=== PATIENT | female | born 1935 | race Caucasian/White ===

== ENCOUNTER 2016-07-31 21:34 | Emergency (ER) | payer MEDICARE, OTHER ==
[~2016-07-31 21:34] MED LIST: ANTIVERT PO; ASPIRIN EC81 M1 PO; ASPIRIN PO; CELEBREX PO; CELEBREX100 MG PO; CIPRO PO; CRESTOR; DICYCLOMINE HCL20 MG PO; DIOVAN160 MG PO; FLEXERIL10 M1 PO; LIPITOR PO; LIPITOR20 MG PO; LISINOPRIL PO; LORATADINE PO; MEDROL4 MG/DOSE- PO; MOBIC PO; NEXIUM PO; PLENDIL PO; PLENDIL5 MG PO; PREMARIN PO; PREMARIN0.3 MG PO; SYNTHROID PO; VICODIN 5/1 TAB 5/50 PO; ZYRTEC PO
== END 2016-07-31 21:52 | disposition home or self-care (01) ==
LOC: SED 21:34
DX: S61.411A Laceration without foreign body of right hand, initial encounter (principal); Z23 Encounter for immunization; I10 Essential (primary) hypertension; M19.90 Unspecified osteoarthritis, unspecified site; Z88.2 Allergy status to sulfonamides; Z88.5 Allergy status to narcotic agent; Z91.041 Radiographic dye allergy status; Z79.899 Other long term (current) drug therapy; W45.8XXA Other foreign body or object entering through skin, initial encounter; Y92.410 Unspecified street and highway as the place of occurrence of the external cause
CPT/HCPCS: 90471; 90715; 99283

== ENCOUNTER 2016-08-15 08:03 | Emergency (ER) | payer MEDICARE, OTHER ==
--- NOTE | ~2016-08-15 | EKG ---
PATIENT: RUSSEL VALENTINO UNIT #: [id number] Ventricular Rate: 65 BPM Atrial Rate: 65 BPM P-R Interval: 164 ms QRS Duration: 110 ms Q-T Interval: 412 ms QTC Calculation(Bezet): 428 ms P Pickens: 30 degrees Calculated R Pickens: -55 degrees Calculated T Pickens: 51 degrees Diagnosis Line: Normal sinus rhythm with sinus arrhythmia Diagnosis Line: Incomplete right bundle branch block Diagnosis Line: Left anterior fascicular block Diagnosis Line: Poor R wave progression questionable lead position Diagnosis Line: or body habitus Diagnosis Line: Borderline ECG Diagnosis Line: When compared with ECG of 14-OCT-2012 09:48, Diagnosis Line: Left anterior fascicular block is now Present Diagnosis Line: Incomplete right bundle branch block is now Diagnosis Line: Present Diagnosis Line: Questionable change in initial forces of Diagnosis Line: Anteroseptal leads Diagnosis Line: Confirmed by KOBY MONTES MD ([id number]) on 08/16/2016 Diagnosis Line: 5:24:48 PM INTERPRETING MD: SIMON SHIPMAN
--- NOTE | ~2016-08-15 | CT71 ---
[facility] A Service of [facility] RADIOLOGY TEXT RESULTS PATIENT: RUSSEL VALENTINO LOCATION: SED : 37 UNIT #: [id number] AGE: [address]: Ray Hernandez MD SEX: F ORDER DR: [id number] [place] [id number] E MR#: [id number] Acc #: [id number] NAME: RUSSEL VALENTINO : 1935 SEX: F STUDY DATE/TIME: 08/15/2016 9:43 UNIT: SED ROOM: STUDY DESCRIPTION: CT Head Wo Contrast Attending Physician: Ray Hernandez M.D. Ordering Physician: Ray Henrandez M.D. Primary Care Physician: No Primary Care Physician MEDICAL IMAGING REPORT This report is preliminary unless electronic signature is present. EXAM Noncontrast CT head. DATE 08/15/2016 HISTORY 80-year-old female with complaints of right mid back pain, hypertension, and dizziness, shortness breath and nausea for 2 days. COMPARISON None TECHNIQUE This CT exam was performed with one or more of the following radiation dose reduction techniques: automatic exposure control, adjustment of mA and/or kV according to patient size, and iterative reconstruction. FINDINGS No acute intracranial hemorrhage, mass lesion, mass effect or midline shift is seen. Rodney matter-white matter junction distinction appears preserved without CT evidence of acute or evolving infarct. There is mild generalized parenchymal atrophy, with slightly more conspicuous cerebellar atrophy. No mass lesion, mass effect, or midline shift or intracranial hemorrhage is seen. Ventricular configuration is within normal limits. Major paranasal sinuses and mastoid air cells appear clear. Intracranial carotid artery calcifications are present. No acute calvarial abnormality is identified. IMPRESSION 1. Mild generalized atrophy, slightly more prominent cerebellar atrophy. 2. No acute intracranial findings. [facility] A Service [facility] RADIOLOGY TEXT RESULTS PATIENT: RUSSEL VALENTINO LOCATION: SED : 37 UNIT #: [id number] AGE: [address]: Ray Hernandez MD SEX: F ORDER DR: Dictated by... Heather Bangura M.D. THIS IS AN ELECTRONICALLY VERIFIED REPORT Heather Bangura M.D. at 08/17/2016 7:13 AM CARIDAD/monica TD: 08/15/2016 10:40 JOB #: [id number] MEDICAL IMAGING REPORT Page 1 of 1
--- NOTE | ~2016-08-15 | CR72 ---
[facility] A Service of [facility] RADIOLOGY TEXT RESULTS PATIENT: RUSSEL VALENTINO LOCATION: SED : 37 UNIT #: [id number] AGE: [address]: Ray Hernandez MD SEX: F ORDER DR: [id number] [place] [id number] E MR#: [id number] Acc #: [id number] NAME: RUSSEL VALENTINO : 1935 SEX: F STUDY DATE/TIME: 08/15/2016 09:46 UNIT: SED ROOM: STUDY DESCRIPTION: CR Chest Single View Portable Attending Physician: Ray Hernandez M.D. Ordering Physician: Ray Hernandez M.D. Primary Care Physician: Primary Care Physician No MEDICAL IMAGING REPORT This report is preliminary unless electronic signature is present. EXAM Portable chest 08/15/2016 0946 hours HISTORY 80-year-old woman with shortness of air, nausea, mid back pain and dizziness for 2 days. Elevated blood pressure. COMPARISON 10/13/2012 FINDINGS Portable upright chest demonstrates normal heart size. There is a mildly tortuous atherosclerotic aorta. There are benign calcified AP window left hilar nodes with calcified granulomata in both lower lungs. There are no acute pulmonary densities. There are no effusions. IMPRESSION 1. Heart size within normal limits with minimally tortuous atherosclerotic aorta unchanged from 10/13/2012. 2. There are benign calcified lymph nodes and calcified granulomata in the lungs. There are no acute pulmonary or pleural findings. 1. Dictated by... Alana Salazar M.D. THIS IS AN ELECTRONICALLY VERIFIED REPORT Alana Salazar M.D. at 08/15/2016 2:29 PM YSABEL/gaye TD: 08/15/2016 10:27 JOB #: [id number] [facility] A Service of [facility] RADIOLOGY TEXT RESULTS PATIENT: RUSSEL VALENTINO LOCATION: SED : 37 UNIT #: [id number] AGE: [address]: Ray Hernandez MD SEX: F ORDER DR: MEDICAL IMAGING REPORT Page 1 of 1
[2016-08-15] MEDS ORDERED: MAGNESIUM250 M1 PO (08:17)
[2016-08-15] MEDS ORDERED: VITAMIN D32000 UNI1 PO (08:17)
[2016-08-15] MEDS ORDERED: FLONASE 0.05% N16 G1 (08:18)
[2016-08-15] MEDS ORDERED: VITAMIN B122500 MC1 PO (08:18)
[2016-08-15] MEDS ORDERED: MOTION RELIEF25 MG PO (08:19)
[2016-08-15 09:17] LABS: BASOPHIL# 0.1 X10e3 (0-0.3); BASOPHIL% 1.2 % (0-2.5); EOSINOPHIL# 0.1 X10e3 (0-0.7); EOSINOPHIL% 1.1 % (0.0-7.0); HEMATOCRIT 45.6 % (35.0-45.0); HEMOGLOBIN 15.4 gm/dL (12.0-16.0); LYMPHOCYTE% 20.8 % (17.0-45.0); MEAN CELL VOLUME 84.1 FL (83-96); MEAN CORPUSCULAR HEMOGLOBIN 28.4 PG (28-34); MEAN CORPUSCULAR HGB CONC 33.8 g/dL (30-36); MEAN PLATELET VOLUME 9.7 FL (6.5-11.5); MONOCYTE# 0.8 X10e3 (0-1.0); MONOCYTE% 8.6 % (3.0-12.0); NEUTROPHIL# 6.5 X10e3 (1.5-7.1); NEUTROPHIL% 68.3 % (40-75); PLATELET COUNT 221 X10e3 (140-420); RED BLOOD COUNT 5.42 X10e (3.90-5.30); WHITE BLOOD COUNT 9.5 X10e3 (4.0-10.5)
[2016-08-15 09:18] LABS: URINE SOURCE CLEAN CATCH
[2016-08-15 09:20] LABS: DIFF IND NO
[2016-08-15 09:20] LABS: URINE APPEARANCE CLEAR; URINE BILIRUBIN NEG (NEG); URINE BLOOD 1+ (NEG); URINE COLOR YELLOW; URINE GLUCOSE NEG (NORM); URINE KETONE NEG (NEG); URINE LEUKOCYTE ESTERASE 2+ (NEG); URINE NITRATE NEG (NEG); URINE PH 5.5 (5-8); URINE PROTEIN NEG (NEG); URINE SPECIFIC GRAVITY 1.015 (1.003-1.035); URINE UROBILINOGEN 0.2 MG/DL (NORM)
[2016-08-15 09:23] LABS: MICRO INDICATED? YES
[2016-08-15 09:36] LABS: ALBUMIN SERUM 4.1 g/dL (3.5-5.0); BILIRUBIN, DIRECT 0.1 mg/dL (0.0-0.2); BILIRUBIN,INDIRECT 0.9 mg/dL (0.0-0.9); BUN/CREATININE RATIO 22.85; CALCIUM SERUM 9.2 mg/dL (8.4-10.2); CREATININE SERUM 0.7 mg/dL (0.6-1.4); POTASSIUM 4.7 mmol/L (3.5-5.1); PROTEIN TOTAL SERUM 7.8 g/dL (6.0-8.3)
[2016-08-15 09:42] LABS: CULTURE INDICATED? YES; URINE BACTERIA 1+ (NEG); URINE RBC 0-2 /[HPF] (0-2); URINE SQUAMOUS EPITHELIAL CELL OCCAS /[HPF]; URINE WBC 25-50 /[HPF] (0-5)
[2016-08-15 10:58] LABS: POC - CKMB <1.0 ng/mL (0.0-7.9); POC - TROPONIN <0.05 ng/mL (<=0.05)
== END 2016-08-15 12:00 | disposition home or self-care (01) ==
LOC: SED 08:03
PROVIDERS: Emergency Medicine
DX: R53.1 Weakness (principal); N39.0 Urinary tract infection, site not specified; I10 Essential (primary) hypertension; J45.909 Unspecified asthma, uncomplicated; E78.5 Hyperlipidemia, unspecified; E03.9 Hypothyroidism, unspecified; Z90.49 Acquired absence of other specified parts of digestive tract; Z90.710 Acquired absence of both cervix and uterus
CPT/HCPCS: 36415; 70450; 71010; 80048; 80076; 81003; 82553; 84484; 85025; 87086; 93005; 96365; 96375; 99284; J0696; J2405